=== PATIENT | female | born 1935 | race Caucasian/White ===

== ENCOUNTER → 2018-06-20 | Outpatient (CLI) | payer OTHER ==
[~2018-06-20] MED LIST: BIMA12.5OS OU; LISI30TA4 PO
== END | disposition home or self-care (01) ==
LOC: RAH 08:45
PROVIDERS: ATTEND Family Medicine
DX: I51.7 Cardiomegaly (principal); R06.09 Other forms of dyspnea
CPT/HCPCS: 93306

== ENCOUNTER 2018-06-26 17:40 | Emergency (ER) | payer OTHER ==
[2018-06-26] MEDS ORDERED: ACETAMINOPHEN EXTRA STRENGTH 500 MG TABLET ONE (18:24)
[2018-06-26] MEDS ORDERED: TETANUS/DIPHTHERIA TOXOID [ADULT] 0.5 ML VIAL IM ONE (19:01)
[2018-06-26] MEDS ORDERED: ONDANSETRON 4 MG TABLET ONE (19:09)
== END 2018-06-26 20:39 | disposition home or self-care (01) ==
LOC: EDH 17:40
DX: S16.1XXA Strain of muscle, fascia and tendon at neck level, initial encounter (principal); I10 Essential (primary) hypertension; Z88.7 Allergy status to serum and vaccine; Z91.012 Allergy to eggs; V49.49XA Driver injured in collision with other motor vehicles in traffic accident, initial encounter; Y93.89 Activity, other specified; Y92.89 Other specified places as the place of occurrence of the external cause; Y99.8 Other external cause status
CPT/HCPCS: 72125; 90471; 90714; 99284; Q0162

== ENCOUNTER 2020-01-14 19:40 | Emergency (ER) | payer OTHER ==
[2020-01-14] MEDS ORDERED: SODIUM CHLORIDE 0.9% 500ML 500 ML IV ONE (19:41)
[2020-01-14 20:41] LABS: BASOPHILS % (AUTO) 0.9 % (0.0-5.0); EOSINOPHILS % (AUTO) 1.5 % (0.0-8.0); HEMATOCRIT 31.5 % (36-48); LYMPHOCYTES % (AUTO) 25.4 % (21.0-51.0); MEAN CORPUSCULAR HEMOGLOBIN 26.9 pg (27.0-33.0); MEAN CORPUSCULAR HGB CONC 31.4 g/dL (32.0-36.0); MEAN CORPUSCULAR VOLUME 85.6 fL (79-99); MONOCYTES % (AUTO) 11.2 % (3.0-13.0); NEUTROPHILS % (AUTO) 60.6 % (40.0-77.0); PLATELET COUNT (AUTO) 398 K/uL (130-400); RED BLOOD CELL COUNT(AUTO) 3.68 MIL/uL (4.00-5.50); RED CELL DISTRIBUTION WIDTH 17.6 % (11.0-15.5); WHITE BLOOD COUNT (AUTO) 9.4 K/uL (4.8-10.8)
[2020-01-14 21:02] LABS: INR 0.97 (0.85-1.15); PARTIAL THROMBOPLASTIN TIME 25.1 SEC (26.3-35.5); PROTHROMBIN TIME 10.5 SEC (9.6-11.6)
[2020-01-14 21:05] LABS: CREATININE 1.4 mg/dL (0.5-1.5); POTASSIUM 3.9 mmol/L (3.5-5.1)
[2020-01-14 21:10] LABS: ALBUMIN 3.1 g/dL (3.5-5.0); BILIRUBIN,TOTAL 0.4 mg/dL (0.2-1.0); TOTAL PROTEIN, SERUM 7.8 g/dL (6.0-8.3)
[2020-01-15 00:11] LABS: APPEARANCE,URINE Clear (CLEAR); BILIRUBIN,URINE Negative (NEGATIVE); COLOR,URINE Yellow (YELLOW); GLUCOSE, URINE (UA) Negative (NEGATIVE); KETONES,URINE Negative (NEGATIVE); LEUKOCYTE ESTERASE ,URINE Trace (NEGATIVE); NITRATE,URINE Negative (NEGATIVE); OCCULT BLOOD,URINE Trace (NEGATIVE); PH,URINE 5.5 (5.0-8.0); PROTEIN,URINE Negative (NEGATIVE)
[2020-01-15 00:28] LABS: BACTERIA,URINE None Seen /HPF (None Seen); RBC,URINE None Seen /HPF (0-1); SQUAMOUS EPITHELIAL CELL,UR Rare /HPF (0-2); WBC,URINE 0-1 /HPF (0-1)
== END 2020-01-15 01:02 | disposition home or self-care (01) ==
LOC: EDH 19:40
DX: E86.0 Dehydration (principal); I49.3 Ventricular premature depolarization; I10 Essential (primary) hypertension; J44.9 Chronic obstructive pulmonary disease, unspecified; Z91.012 Allergy to eggs; Z88.7 Allergy status to serum and vaccine; Z86.718 Personal history of other venous thrombosis and embolism
CPT/HCPCS: 36415; 71045; 80053; 81001; 82550; 83880; 84484; 85025; 85610; 85730; 93005; 96360; 96361; 99285; J7040

== ENCOUNTER 2020-01-26 10:38 | Emergency (ER) | payer OTHER ==
[2020-01-26] MEDS ORDERED: ASPIRIN 325 MG TABLET ONE (10:48)
[2020-01-26 10:59] LABS: BASOPHILS % (AUTO) 0.4 % (0.0-5.0); EOSINOPHILS % (AUTO) 0.3 % (0.0-8.0); HEMATOCRIT 35.7 % (36-48); LYMPHOCYTES % (AUTO) 40.9 % (21.0-51.0); MEAN CORPUSCULAR HEMOGLOBIN 27.6 pg (27.0-33.0); MEAN CORPUSCULAR HGB CONC 32.2 g/dL (32.0-36.0); MEAN CORPUSCULAR VOLUME 85.8 fL (79-99); MONOCYTES % (AUTO) 12.4 % (3.0-13.0); NEUTROPHILS % (AUTO) 45.9 % (40.0-77.0); PLATELET COUNT (AUTO) 218 K/uL (130-400); RED BLOOD CELL COUNT(AUTO) 4.16 MIL/uL (4.00-5.50); RED CELL DISTRIBUTION WIDTH 17.5 % (11.0-15.5); WHITE BLOOD COUNT (AUTO) 7.2 K/uL (4.8-10.8)
[2020-01-26 11:06] LABS: CREATININE 1.1 mg/dL (0.5-1.5)
[2020-01-26 11:11] LABS: ALBUMIN 2.9 g/dL (3.5-5.0); BILIRUBIN,TOTAL 0.5 mg/dL (0.2-1.0); TOTAL PROTEIN, SERUM 7.5 g/dL (6.0-8.3)
[2020-01-26 11:17] LABS: B-TYPE NATRIURETIC PEPTIDE 90 pg/mL (0-100)
[2020-01-26 11:31] LABS: INR 0.9 (0.85-1.15); PARTIAL THROMBOPLASTIN TIME 30.9 SEC (26.3-35.5); PROTHROMBIN TIME 9.8 SEC (9.6-11.6)
[2020-01-26 13:07] LABS: APPEARANCE,URINE Clear (CLEAR); BILIRUBIN,URINE Negative (NEGATIVE); COLOR,URINE Yellow (YELLOW); GLUCOSE, URINE (UA) Negative (NEGATIVE); KETONES,URINE Negative (NEGATIVE); LEUKOCYTE ESTERASE ,URINE Trace (NEGATIVE); NITRATE,URINE Negative (NEGATIVE); OCCULT BLOOD,URINE Negative (NEGATIVE); PROTEIN,URINE Negative (NEGATIVE); UROBILINOGEN,URINE 0.2 mg/dL (0.2-1.0)
[2020-01-26 13:32] LABS: BACTERIA,URINE Rare /HPF (None Seen); RBC,URINE None Seen /HPF (0-1); WBC,URINE 0-1 /HPF (0-1)
[2020-01-26 13:33] LABS: SQUAMOUS EPITHELIAL CELL,UR 0-2 /HPF (0-2)
== END 2020-01-26 15:30 | disposition home or self-care (01) ==
LOC: EDH 10:38
DX: R53.1 Weakness (principal); R30.0 Dysuria; I49.01 Ventricular fibrillation; I10 Essential (primary) hypertension; Z88.7 Allergy status to serum and vaccine; Z91.012 Allergy to eggs
CPT/HCPCS: 36415; 71045; 80053; 81001; 82550; 83880; 84484; 85025; 85610; 85730; 93005

== ENCOUNTER → 2020-03-23 | Outpatient (CLI) | payer OTHER | END | disposition home or self-care (01) | LOC: SHCH 14:19 | PROVIDERS: ATTEND Internal Medicine Cardiovascular Disease | DX: I34.0 Nonrheumatic mitral (valve) insufficiency (principal) | CPT/HCPCS: 93306; 93356 ==

== ENCOUNTER 2020-08-20 17:33 | Inpatient (IN) | payer OTHER ==
[~2020-08-20] VITALS: Ht 172.7 cm; Wt 69.9 kg
[2020-08-20 19:13] LABS: BASOPHILS % (AUTO) 0.6 % (0.0-5.0); EOSINOPHILS % (AUTO) 2.2 % (0.0-8.0); HEMATOCRIT 36.8 % (36-48); LYMPHOCYTES % (AUTO) 20.1 % (21.0-51.0); MEAN CORPUSCULAR HEMOGLOBIN 27.6 pg (27.0-33.0); MEAN CORPUSCULAR HGB CONC 31.5 g/dL (32.0-36.0); MEAN CORPUSCULAR VOLUME 87.6 fL (79-99); MONOCYTES % (AUTO) 16.4 % (3.0-13.0); NEUTROPHILS % (AUTO) 60.3 % (40.0-77.0); PLATELET COUNT (AUTO) 285 K/uL (130-400); RED CELL DISTRIBUTION WIDTH 15.9 % (11.0-15.5)
[2020-08-20 19:26] LABS: INR 1.38 (0.85-1.15); PROTHROMBIN TIME 14.6 SEC (9.6-11.6)
[2020-08-20 19:27] LABS: PARTIAL THROMBOPLASTIN TIME 34.8 SEC (26.3-35.5)
[2020-08-20 19:29] LABS: ALBUMIN 2.6 g/dL (3.5-5.0); BILIRUBIN,TOTAL 0.4 mg/dL (0.2-1.0); CREATININE 1.3 mg/dL (0.5-1.5); TOTAL PROTEIN, SERUM 6.3 g/dL (6.0-8.3)
[2020-08-20] MEDS ORDERED: MORPHINE 2 MG SYG ONE (19:30)
[2020-08-20] MEDS ORDERED: ONDANSETRON 4MG INJ ONE (19:30)
[2020-08-20] MEDS ORDERED: 0.9%NACL 1000ML 1,000 ML IV ONE (19:31)
[2020-08-20 19:32] LABS: POTASSIUM 2.9 mmol/L (3.5-5.1)
[2020-08-20 19:35] LABS: B-TYPE NATRIURETIC PEPTIDE 63 pg/mL (0-100)
[2020-08-20] MEDS ORDERED: POTASSIUM BICARB/CIT AC 25 MEQ TABLET.EFF ONE ×2 (20:45→23:16)
[2020-08-20] MEDS ORDERED: IOHEXOL-350 75 ML VIAL IV ONE (21:15)
[2020-08-20] MEDS ORDERED: LACTATED RINGERS 1000ML 1,000 ML IV ONE (23:16)
[2020-08-20] MEDS: LACTATED RINGERS 1000ML 1,000 ML IV SCH (23:45)
[2020-08-20] MEDS ORDERED: ACETAMINOPHEN 325 MG TAB PO PRN (23:45)
[2020-08-21] VITALS (7 sets, daily range): BP systolic 103–116; BP diastolic 47–70
[2020-08-21] MEDS ORDERED: DICY20TA3 PO (00:33)
[2020-08-21] MEDS ORDERED: RIVA20TA PO (00:33)
[2020-08-21] MEDS ORDERED: FERR325T22 PO (00:34)
[2020-08-21] MEDS ORDERED: PANT40TA54 PO (00:34)
[2020-08-21] MEDS ORDERED: LISI1TAB51 PO (00:36)
[2020-08-21] MEDS ORDERED: DICYCLOMINE HCL 20 MG TAB PO PRN (01:00)
[2020-08-21] MEDS ORDERED: PHARMACY COMMUNICATION MISC SCH (01:30)
[2020-08-21 01:56] LABS: APPEARANCE,URINE Clear (CLEAR); BILIRUBIN,URINE Negative (NEGATIVE); COLOR,URINE Yellow (YELLOW); GLUCOSE, URINE (UA) Negative (NEGATIVE); KETONES,URINE Negative (NEGATIVE); LEUKOCYTE ESTERASE ,URINE Negative (NEGATIVE); NITRATE,URINE Negative (NEGATIVE); OCCULT BLOOD,URINE Moderate (NEGATIVE); PH,URINE 5.5 (5.0-8.0); PROTEIN,URINE Trace mg/dL (NEGATIVE); UROBILINOGEN,URINE 0.2 mg/dL (0.2-1.0)
[2020-08-21 02:07] LABS: BACTERIA,URINE None Seen /HPF (None Seen); SQUAMOUS EPITHELIAL CELL,UR Few /HPF (0-2); WBC,URINE None Seen /HPF (0-1)
[2020-08-21] MEDS: METRONIDAZOLE 500 MG TABLET PO SCH ×2 (04:08→10:51)
[2020-08-21 05:08] LABS: HEMATOCRIT 32.5 % (36-48); MEAN CORPUSCULAR HEMOGLOBIN 27.2 pg (27.0-33.0); MEAN CORPUSCULAR HGB CONC 31.4 g/dL (32.0-36.0); MEAN CORPUSCULAR VOLUME 86.7 fL (79-99); RED BLOOD CELL COUNT(AUTO) 3.75 MIL/uL (4.00-5.50); RED CELL DISTRIBUTION WIDTH 15.9 % (11.0-15.5); WHITE BLOOD COUNT (AUTO) 9.4 K/uL (4.8-10.8)
[2020-08-21 05:18] LABS: CREATININE 1.1 mg/dL (0.5-1.5); POTASSIUM 3.5 mmol/L (3.5-5.1)
[2020-08-21] MEDS: VANCOMYCIN 1G 4 GM, 0.9%NACL 20 ML VIAL 80 ML PO SCH ×6 (08:15→20:48)
[2020-08-21] MEDS ORDERED: COMPOUND PO MISCELLANEOUS 1 EACH MISC MISC PRN (08:15)
[2020-08-21] MEDS: CHOLESTYRAMINE PACKET 4 GM PACKET PO SCH ×2 (10:51→20:49)
[2020-08-21] MEDS: RIVAROXABAN 20 MG TABLET PO SCH (10:53)
[2020-08-21] MEDS: FERROUS SULFATE 325 MG TABLET.DR PO SCH ×2 (10:54→16:14)
[2020-08-21] MEDS: PANTOPRAZOLE 40 MG TAB DR PO SCH (10:54)
[2020-08-21] MEDS: LACTATED RINGERS 1000ML 1,000 ML IV SCH ×2 (10:55→16:01)
[2020-08-21] MEDS ORDERED: NITAZOXANIDE 500 MG TAB PO SCH (13:45)
[2020-08-21] MEDS: NITAZOXANIDE 500 MG TAB PO SCH (20:48)
[2020-08-21] MEDS: ***HM*** (Bimatoprost (Lumigan 0.01% Ophth Soln) 1 DROP) OU SCH (20:49)
[2020-08-22] MEDS: LACTATED RINGERS 1000ML 1,000 ML IV SCH ×4 (00:06→20:51)
[2020-08-22 04:23] VITALS: BP 125/60
[2020-08-22 05:32] LABS: HEMATOCRIT 30.6 % (36-48); MEAN CORPUSCULAR HEMOGLOBIN 27.5 pg (27.0-33.0); RED BLOOD CELL COUNT(AUTO) 3.56 MIL/uL (4.00-5.50); RED CELL DISTRIBUTION WIDTH 15.7 % (11.0-15.5); WHITE BLOOD COUNT (AUTO) 8.5 K/uL (4.8-10.8)
[2020-08-22] MEDS: VANCOMYCIN 1G 4 GM, 0.9%NACL 20 ML VIAL 80 ML PO SCH ×8 (05:41→20:48)
[2020-08-22 06:04] LABS: MAGNESIUM 1.2 mg/dL (1.80-2.40); POTASSIUM 3.2 mmol/L (3.5-5.1)
[2020-08-22 07:58] VITALS: BP 109/60
[2020-08-22] MEDS: NITAZOXANIDE 500 MG TAB PO SCH ×2 (09:14→21:00)
[2020-08-22] MEDS: FERROUS SULFATE 325 MG TABLET.DR PO SCH ×2 (09:14→16:08)
[2020-08-22] MEDS: RIVAROXABAN 20 MG TABLET PO SCH (09:15)
[2020-08-22] MEDS: ZINC OXIDE OINT 56.7 GM TP SCH ×3 (09:15→22:08)
[2020-08-22] MEDS: CHOLESTYRAMINE PACKET 4 GM PACKET PO SCH (09:15)
[2020-08-22] MEDS: PANTOPRAZOLE 40 MG TAB DR PO SCH (09:15)
[2020-08-22] MEDS ORDERED: LIDOCAINE HCL-MPF 1% 2ML VIAL IV PRN (09:30)
[2020-08-22] MEDS ORDERED: POTASSIUM CHLORIDE 20MEQ/100ML 100 ML IV PRN (09:30)
[2020-08-22] MEDS ORDERED: KCL 20 MEQ ERTAB PO PRN (09:30)
[2020-08-22] MEDS: MAGNESIUM 2GM PREMIX 50ML 50 ML IV PRN (11:00)
[2020-08-22 12:07] VITALS: BP 103/59
[2020-08-22] MEDS: POTASSIUM CHLORIDE 10% ELIXIR 20 MEQ/15 ML UDCUP PO PRN ×2 (12:38→22:07)
[2020-08-22 16:00] VITALS: BP 122/66
[2020-08-22 19:37] LABS: APPEARANCE,URINE CLEAR (CLEAR); BILIRUBIN,URINE NEGATIVE (NEGATIVE); COLOR,URINE YELLOW (YELLOW); GLUCOSE, URINE (UA) NEGATIVE (NEGATIVE); KETONES,URINE NEGATIVE (NEGATIVE); LEUKOCYTE ESTERASE ,URINE NEGATIVE (NEGATIVE); NITRATE,URINE NEGATIVE (NEGATIVE); OCCULT BLOOD,URINE SMALL (NEGATIVE); PROTEIN,URINE TRACE mg/dL (NEGATIVE); UROBILINOGEN,URINE 0.2 mg/dL (0.2-1.0)
[2020-08-22 19:43] LABS: BACTERIA,URINE Few /HPF (None Seen)
[2020-08-22 19:44] LABS: MUCUS,URINE Few LPF (None Seen); SQUAMOUS EPITHELIAL CELL,UR Few /HPF (0-2); URIC ACID CRYSTALS,URINE Few /LPF (None Seen)
[2020-08-22 19:46] VITALS: BP 110/74
[2020-08-22] MEDS: LACTOBACILLUS RHAMNOSUS GG 1 EACH CAP.SPRINK PO SCH (20:49)
[2020-08-22] MEDS: ***HM*** (Bimatoprost (Lumigan 0.01% Ophth Soln) 1 DROP) OU SCH (21:00)
[2020-08-22 23:05] VITALS: BP 127/75
[2020-08-23] MEDS: VANCOMYCIN 1G 4 GM, 0.9%NACL 20 ML VIAL 80 ML PO SCH ×8 (03:38→20:26)
[2020-08-23 04:16] VITALS: BP 114/74
[2020-08-23 05:00] LABS: HEMATOCRIT 34.2 % (36-48); MEAN CORPUSCULAR HEMOGLOBIN 27.2 pg (27.0-33.0); MEAN CORPUSCULAR HGB CONC 30.4 g/dL (32.0-36.0); MEAN CORPUSCULAR VOLUME 89.3 fL (79-99); RED BLOOD CELL COUNT(AUTO) 3.83 MIL/uL (4.00-5.50); RED CELL DISTRIBUTION WIDTH 15.8 % (11.0-15.5); WHITE BLOOD COUNT (AUTO) 7.2 K/uL (4.8-10.8)
[2020-08-23 05:16] LABS: MAGNESIUM 1.7 mg/dL (1.80-2.40); POTASSIUM 4.2 mmol/L (3.5-5.1)
[2020-08-23 07:00] VITALS: BP 121/61
[2020-08-23] MEDS: LACTATED RINGERS 1000ML 1,000 ML IV SCH ×2 (07:45→20:13)
[2020-08-23] MEDS: FERROUS SULFATE 325 MG TABLET.DR PO SCH ×2 (08:40→16:26)
[2020-08-23] MEDS: PANTOPRAZOLE 40 MG TAB DR PO SCH (08:40)
[2020-08-23] MEDS: LACTOBACILLUS RHAMNOSUS GG 1 EACH CAP.SPRINK PO SCH ×2 (08:40→20:24)
[2020-08-23] MEDS: RIVAROXABAN 20 MG TABLET PO SCH (08:40)
[2020-08-23] MEDS: MAGNESIUM 2GM PREMIX 50ML 50 ML IV PRN (08:41)
[2020-08-23] MEDS: ZINC OXIDE OINT 56.7 GM TP SCH ×3 (08:42→20:25)
[2020-08-23] MEDS: NITAZOXANIDE 500 MG TAB PO SCH ×2 (10:02→20:24)
[2020-08-23 11:30] VITALS: BP 140/77
[2020-08-23 16:00] VITALS: BP 111/70
[2020-08-23 20:00] VITALS: BP 141/72
[2020-08-23] MEDS: ***HM*** (Bimatoprost (Lumigan 0.01% Ophth Soln) 1 DROP) OU SCH (21:00)
[2020-08-24] VITALS: BP 146/81
[2020-08-24] MEDS: VANCOMYCIN 1G 4 GM, 0.9%NACL 20 ML VIAL 80 ML PO SCH ×6 (02:31→15:12)
[2020-08-24 04:00] VITALS: BP 141/77
[2020-08-24 05:04] LABS: HEMATOCRIT 35.2 % (36-48); MEAN CORPUSCULAR HEMOGLOBIN 26.7 pg (27.0-33.0); MEAN CORPUSCULAR HGB CONC 29.3 g/dL (32.0-36.0); MEAN CORPUSCULAR VOLUME 91.2 fL (79-99); RED BLOOD CELL COUNT(AUTO) 3.86 MIL/uL (4.00-5.50); RED CELL DISTRIBUTION WIDTH 15.9 % (11.0-15.5); WHITE BLOOD COUNT (AUTO) 8.3 K/uL (4.8-10.8)
[2020-08-24 05:22] LABS: POTASSIUM 4.1 mmol/L (3.5-5.1)
[2020-08-24] MEDS: MAGNESIUM 2GM PREMIX 50ML 50 ML IV PRN (06:47)
[2020-08-24] MEDS: LACTATED RINGERS 1000ML 1,000 ML IV SCH (07:38)
[2020-08-24 08:00] VITALS: BP 128/70
[2020-08-24] MEDS: LACTOBACILLUS RHAMNOSUS GG 1 EACH CAP.SPRINK PO SCH (09:31)
[2020-08-24] MEDS: FERROUS SULFATE 325 MG TABLET.DR PO SCH (09:31)
[2020-08-24] MEDS: PANTOPRAZOLE 40 MG TAB DR PO SCH (09:31)
[2020-08-24] MEDS: NITAZOXANIDE 500 MG TAB PO SCH (09:31)
[2020-08-24] MEDS: RIVAROXABAN 20 MG TABLET PO SCH (09:32)
[2020-08-24] MEDS: ZINC OXIDE OINT 56.7 GM TP SCH ×2 (09:37→15:13)
[2020-08-24 11:52] VITALS: BP 121/63
[2020-08-24] MEDS ORDERED: LACT1CAP79 PO (14:20)
[2020-08-24] MEDS ORDERED: VANC250C6 PO (14:20)
[2020-08-24] MEDS ORDERED: NITA500T4 PO (14:20)
[2020-09-15] MEDS ORDERED: LISI20TA24 PO (10:01)
[2020-09-15] MEDS ORDERED: CYAN-52 PO (10:26)
[2020-11-12] MEDS ORDERED: L.AC1CAP6 PO (16:31)
[2020-11-12] MEDS ORDERED: PROP150T28 PO (16:31)
[2020-11-12] MEDS ORDERED: HYDR12.54 PO (16:31)
[2020-11-12] MEDS ORDERED: LISI1TAB51 PO (16:31)
[2020-11-12] MEDS ORDERED: PANT40TA54 PO (16:32)
[2021-01-01] MEDS ORDERED: CYAN500T9 PO (10:20)
[2021-01-01] MEDS ORDERED: DICY20TA3 PO (10:20)
[2021-01-01] MEDS ORDERED: CA C1TAB74 PO (10:20)
[2021-01-03] MEDS ORDERED: FERR325T22 PO (15:29)
[2021-01-03] MEDS ORDERED: PANT40TA54 PO (15:29)
== END 2020-08-24 18:30 | disposition home or self-care (01) | DRG 373 ==
LOC: EDH 17:33 → OBSVTOIN 22:39 → EDHIP 22:39 → 3CH 08-21 00:02
PROVIDERS: ADMIT Internal Medicine Critical Care Medicine; ATTEND Internal Medicine Critical Care Medicine
DX: A04.72 Enterocolitis due to Clostridium difficile, not specified as recurrent (principal); D64.9 Anemia, unspecified; I48.91 Unspecified atrial fibrillation; K21.9 Gastro-esophageal reflux disease without esophagitis; E83.42 Hypomagnesemia; K57.90 Diverticulosis of intestine, part unspecified, without perforation or abscess without bleeding; I11.9 Hypertensive heart disease without heart failure; E86.0 Dehydration; K44.9 Diaphragmatic hernia without obstruction or gangrene; E87.6 Hypokalemia; M19.90 Unspecified osteoarthritis, unspecified site; R30.0 Dysuria; R91.1 Solitary pulmonary nodule; R53.81 Other malaise; Z79.01 Long term (current) use of anticoagulants; Z86.19 Personal history of other infectious and parasitic diseases; Z79.899 Other long term (current) drug therapy
CPT/HCPCS: 36415; 74018; 74177; 80048; 80053; 81001; 82270; 82948; 83605; 83690; 83735; 83880; 84484; 85025; 85027; 85610; 85730; 87040; 87046; 87088; 87324; 93005; G0378; J2405; J3370; J3475; J7030; J7120; Q9967

== ENCOUNTER 2020-09-16 06:30 | Day surgery (SDC) | payer OTHER ==
[2020-09-11 15:11] LABS: EOSINOPHILS % (AUTO) 4.2 % (0.0-8.0); HEMATOCRIT 32.7 % (36-48); LYMPHOCYTES % (AUTO) 35.5 % (21.0-51.0); MEAN CORPUSCULAR HGB CONC 30.9 g/dL (32.0-36.0); MEAN CORPUSCULAR VOLUME 90.6 fL (79-99); MONOCYTES % (AUTO) 10.8 % (3.0-13.0); NEUTROPHILS % (AUTO) 48.2 % (40.0-77.0); PLATELET COUNT (AUTO) 259 K/uL (130-400); RED BLOOD CELL COUNT(AUTO) 3.61 MIL/uL (4.00-5.50); RED CELL DISTRIBUTION WIDTH 16.9 % (11.0-15.5); WHITE BLOOD COUNT (AUTO) 6.2 K/uL (4.8-10.8)
[2020-09-11 15:19] LABS: POTASSIUM 4.1 mmol/L (3.5-5.1)
[~2020-09-16] VITALS: Ht 172.7 cm; Wt 71.8 kg
[~2020-09-16 06:30] MED LIST changes: -BIMA12.5OS OU; +CYAN-52 PO; +FERR325T22 PO; +LACT1CAP79 PO; +LISI20TA24 PO; -LISI30TA4 PO; +RIVA20TA PO; +VANC250C6 PO
[2020-09-16 07:25] VITALS: BP 138/86
[2020-09-16] MEDS ORDERED: 0.9%NACL 1000ML 1,000 ML IV SCH (08:00)
[2020-09-16] MEDS ORDERED: PROPOFOL 10 MG/ML 20ML VIAL IV ONE (08:16)
[2020-09-16 08:45] VITALS: BP 124/64
[2020-09-16] MEDS ORDERED: PROPAFENONE HCL 150 MG TABLET PO SCH (08:49)
[2020-09-16 09:00] VITALS: BP 143/87
[2020-09-16 09:15] VITALS: BP 149/92
[2020-09-16 09:30] VITALS: BP 146/85
[2020-11-12] MEDS ORDERED: L.AC1CAP6 PO (16:31)
[2020-11-12] MEDS ORDERED: HYDR12.54 PO (16:31)
[2020-11-12] MEDS ORDERED: LISI1TAB51 PO (16:31)
[2020-11-12] MEDS ORDERED: PROP150T28 PO (16:31)
[2020-11-12] MEDS ORDERED: PANT40TA54 PO (16:32)
[2021-01-01] MEDS ORDERED: CA C1TAB74 PO (10:20)
[2021-01-01] MEDS ORDERED: CYAN500T9 PO (10:20)
[2021-01-01] MEDS ORDERED: DICY20TA3 PO (10:20)
[2021-01-03] MEDS ORDERED: FERR325T22 PO (15:29)
[2021-01-03] MEDS ORDERED: PANT40TA54 PO (15:29)
== END 2020-09-16 09:45 | disposition home or self-care (01) ==
LOC: DAH 06:30
PROVIDERS: ATTEND Internal Medicine Cardiovascular Disease
DX: I48.3 Typical atrial flutter (principal); Z20.822 Contact with and (suspected) exposure to COVID-19; I48.91 Unspecified atrial fibrillation; I49.3 Ventricular premature depolarization; J44.9 Chronic obstructive pulmonary disease, unspecified; I11.9 Hypertensive heart disease without heart failure; I45.10 Unspecified right bundle-branch block; I44.0 Atrioventricular block, first degree; I48.92 Unspecified atrial flutter; I49.1 Atrial premature depolarization; I25.2 Old myocardial infarction; Z79.01 Long term (current) use of anticoagulants; Z79.899 Other long term (current) drug therapy; Z98.890 Other specified postprocedural states; Z86.718 Personal history of other venous thrombosis and embolism; Z91.012 Allergy to eggs
CPT/HCPCS: 36415; 80048; 85025; 87426; 92960; 93005 ×2; A4215; A4216; A4221; A4222; A4223 ×3; A4606; A4663; J2704; J7030; 99152; 99153

== ENCOUNTER 2020-11-13 06:06 | Day surgery (SDC) | payer OTHER ==
[2020-11-10 12:05] VITALS: BP 131/72
[2020-11-11 12:21] LABS: BASOPHILS % (AUTO) 0.9 % (0.0-5.0); EOSINOPHILS % (AUTO) 4.2 % (0.0-8.0); HEMATOCRIT 34.4 % (36-48); LYMPHOCYTES % (AUTO) 41.1 % (21.0-51.0); MEAN CORPUSCULAR HEMOGLOBIN 29.2 pg (27.0-33.0); MEAN CORPUSCULAR HGB CONC 31.1 g/dL (32.0-36.0); MEAN CORPUSCULAR VOLUME 93.7 fL (79-99); NEUTROPHILS % (AUTO) 44.6 % (40.0-77.0); PLATELET COUNT (AUTO) 190 K/uL (130-400); RED BLOOD CELL COUNT(AUTO) 3.67 MIL/uL (4.00-5.50); WHITE BLOOD COUNT (AUTO) 6.4 K/uL (4.8-10.8)
[2020-11-11 12:29] LABS: CREATININE 1.1 mg/dL (0.5-1.5); POTASSIUM 4.7 mmol/L (3.5-5.1)
[2020-11-11 12:32] LABS: INR 1.22 (0.85-1.15); PROTHROMBIN TIME 13.1 SEC (9.6-11.6)
[2020-11-11 12:33] LABS: PARTIAL THROMBOPLASTIN TIME 37.9 SEC (26.3-35.5)
[~2020-11-13] VITALS: Ht 172.7 cm; Wt 68.9 kg
[2020-11-13] VITALS (8 sets, daily range): BP systolic 130–161; BP diastolic 63–83
[~2020-11-13 06:06] MED LIST changes: -CYAN-52 PO; +HYDR12.54 PO; +L.AC1CAP6 PO; -LACT1CAP79 PO; +LISI1TAB51 PO; -LISI20TA24 PO; +PANT40TA54 PO; +PROP150T28 PO; -VANC250C6 PO
[2020-11-13] MEDS ORDERED: SODIUM CHLORIDE 0.9% 1000ML 1,000 ML IV ONE (07:12)
[2020-11-13] MEDS ORDERED: MIDAZOLAM HCL 1 MG/ML 2ML VIAL ONE ×2 (07:14→10:14)
[2020-11-13] MEDS ORDERED: MEPERIDINE-PF 25 MG/ML SYG ONE ×2 (07:14→10:14)
[2020-11-13] MEDS ORDERED: HEPARIN SODIUM 1000UNIT/ML 10ML VIAL ONE (07:14)
[2020-11-13] MEDS ORDERED: LIDOCAINE HCL 400MG/20ML VIAL ONE (07:15)
== END 2020-11-13 14:30 | disposition home or self-care (01) ==
LOC: DAH 06:06
PROVIDERS: ATTEND Internal Medicine Cardiovascular Disease
DX: I48.3 Typical atrial flutter (principal); I48.0 Paroxysmal atrial fibrillation; I49.3 Ventricular premature depolarization; J44.9 Chronic obstructive pulmonary disease, unspecified; I10 Essential (primary) hypertension; Z79.01 Long term (current) use of anticoagulants; Z91.012 Allergy to eggs; Z88.8 Allergy status to other drugs, medicaments and biological substances; Z98.42 Cataract extraction status, left eye; Z98.890 Other specified postprocedural states; Z98.41 Cataract extraction status, right eye
CPT/HCPCS: 36415; 80048; 85025; 85610; 85730; 93613; 93621; 93653; A4215; A4216; A4221; A4222; A4223 ×3; A4606; A4615; A4649 ×2; A4663; C1730; C1732; C1893; C1894 ×2; J1644 ×2; J2175 ×2; J2250 ×2; J3490; J7030; 99156; 99157

== ENCOUNTER 2021-09-22 06:56 | Day surgery (SDC) | payer OTHER ==
[2021-09-21 16:41] LABS: BASOPHILS % (AUTO) 0.6 % (0.0-5.0); EOSINOPHILS % (AUTO) 1.3 % (0.0-8.0); LYMPHOCYTES % (AUTO) 30.4 % (21.0-51.0); MEAN CORPUSCULAR HEMOGLOBIN 27.6 pg (27.0-33.0); MEAN CORPUSCULAR HGB CONC 31.1 g/dL (32.0-36.0); MEAN CORPUSCULAR VOLUME 88.8 fL (79-99); MONOCYTES % (AUTO) 9.5 % (3.0-13.0); NEUTROPHILS % (AUTO) 57.9 % (40.0-77.0); PLATELET COUNT (AUTO) 262 K/uL (130-400); RED BLOOD CELL COUNT(AUTO) 3.04 MIL/uL (4.00-5.50); RED CELL DISTRIBUTION WIDTH 16.7 % (11.0-15.5); WHITE BLOOD COUNT (AUTO) 6.2 K/uL (4.8-10.8)
[2021-09-21 16:50] LABS: CREATININE 1.3 mg/dL (0.5-1.5); POTASSIUM 3.7 mmol/L (3.5-5.1)
[2021-09-21 16:56] LABS: PROTHROMBIN TIME 10.4 SEC (9.6-11.6)
[2021-09-22] VITALS (13 sets, daily range): BP systolic 133–163; BP diastolic 52–64
[~2021-09-22] VITALS: Ht 172.7 cm; Wt 62.7 kg
[~2021-09-22 06:56] MED LIST changes: +0.9% NACL 500ML IV.SOLN 500 ML IV SCH; +CA C1TAB74 PO; +CYAN500T9 PO; +DICY20TA3 PO; -HYDR12.54 PO; -RIVA20TA PO
[2021-09-22] MEDS ORDERED: LIDOCAINE HCL 2% VISCOUS 15 ML UDCUP ONE (07:52)
[2021-09-22] MEDS ORDERED: MIDAZOLAM HCL 1 MG/ML 2ML VIAL ONE (07:53)
[2021-09-22] MEDS ORDERED: FENTANYL CITRATE PF 50 MCG/1 ML 2ML VIAL ONE (07:53)
[2021-09-22] MEDS ORDERED: AMIO200T68 PO (08:14)
[2021-09-22] MEDS ORDERED: LEVO25CA4 PO (08:14)
[2021-09-22] MEDS ORDERED: CLOP75TA32 PO (08:14)
== END 2021-09-22 10:00 | disposition home or self-care (01) ==
LOC: DAH 06:56
PROVIDERS: ATTEND Internal Medicine Cardiovascular Disease
DX: I48.0 Paroxysmal atrial fibrillation (principal); I34.0 Nonrheumatic mitral (valve) insufficiency; I49.3 Ventricular premature depolarization; I10 Essential (primary) hypertension; J44.9 Chronic obstructive pulmonary disease, unspecified; Z79.01 Long term (current) use of anticoagulants; Z79.899 Other long term (current) drug therapy; Z98.42 Cataract extraction status, left eye; Z98.890 Other specified postprocedural states; Z98.41 Cataract extraction status, right eye; Z88.8 Allergy status to other drugs, medicaments and biological substances; Z91.012 Allergy to eggs
CPT/HCPCS: 36415; 71045; 80048; 85025; 85610; 85730; 93005; 93312; A4215; A4216; A4221; A4222; A4223 ×3; A4606; A4615; A4663; A7002; J2250; J3010; 99152

== ENCOUNTER → 2022-08-16 | Outpatient (CLI) | payer OTHER ==
[~2022-08-16] MED LIST changes: -0.9% NACL 500ML IV.SOLN 500 ML IV SCH; +AMIO200T68 PO; -CA C1TAB74 PO; +CLOP75TA32 PO; -CYAN500T9 PO; -DICY20TA3 PO; -FERR325T22 PO; -L.AC1CAP6 PO; +LEVO25CA4 PO; -LISI1TAB51 PO; -PROP150T28 PO
== END | disposition home or self-care (01) ==
LOC: SHCH 12:53
PROVIDERS: ATTEND Internal Medicine Cardiovascular Disease
DX: I48.0 Paroxysmal atrial fibrillation (principal); I11.9 Hypertensive heart disease without heart failure
CPT/HCPCS: 93306

== ENCOUNTER 2023-05-02 06:17 | Day surgery (SDC) | payer OTHER ==
[2023-04-27 14:42] LABS: BASOPHILS # (AUTO) 0.05 K/uL (0.00-0.20); BASOPHILS % (AUTO) 0.6 % (0.0-5.0); EOSINOPHILS # (AUTO) 0.16 K/uL (0.00-0.70); HEMATOCRIT 30.9 % (36-48); IMMATURE GRANULOCYTE ABSOLUTE 0.02 K/uL (0-1); LYMPHOCYTES # (AUTO) 2.7 K/uL (1.0-4.8); LYMPHOCYTES % (AUTO) 34.2 % (21.0-51.0); MEAN CORPUSCULAR HEMOGLOBIN 26.3 pg (27.0-33.0); MEAN CORPUSCULAR HGB CONC 30.1 g/dL (32.0-36.0); MEAN CORPUSCULAR VOLUME 87.3 fL (79-99); MONOCYTES # (AUTO) 0.9 K/uL (0.1-1.0); NEUTROPHILS # (AUTO) 4.1 K/uL (1.8-7.7); NEUTROPHILS % (AUTO) 51.9 % (40.0-77.0); PLATELET COUNT (AUTO) 320 K/uL (130-400); RED BLOOD CELL COUNT(AUTO) 3.54 MIL/uL (4.00-5.50); RED CELL DISTRIBUTION WIDTH 17.2 % (11.0-15.5); WHITE BLOOD COUNT (AUTO) 7.8 K/uL (4.8-10.8)
[2023-04-27 14:49] LABS: INR 1.33 (0.85-1.15); PROTHROMBIN TIME 15.1 SEC (9.6-11.6)
[2023-04-27 14:50] LABS: CREATININE 1.1 mg/dL (0.5-1.5); PARTIAL THROMBOPLASTIN TIME 55.7 SEC (26.3-35.5); POTASSIUM 4.8 mmol/L (3.5-5.1)
[2023-04-28 15:22] VITALS: BP 128/57; PULSE 64; RESP 18
[2023-05-02] VITALS (8 sets, daily range): BP systolic 118–132; BP diastolic 66–78; PULSE 78–86; RESP 15
[~2023-05-02] VITALS: Ht 170.2 cm; Wt 70.6 kg
[~2023-05-02 06:17] MED LIST changes: +AEC81 PO; -AMIO200T68 PO; +AMLO-257 PO; -CLOP75TA32 PO; +DOCU50CA15 PO; +RIVA15TA PO
[2023-05-02] MEDS ORDERED: 0.9%NACL 1000ML 1,000 ML IV ONE (06:50)
[2023-05-02] MEDS ORDERED: FENTANYL CITRATE PF 50 MCG/1 ML 2ML VIAL ONE (07:40)
[2023-05-02] MEDS ORDERED: MIDAZOLAM HCL 1 MG/ML 2ML VIAL ONE (07:40)
[2023-05-02] MEDS ORDERED: LIDOCAINE HCL 400MG/20ML VIAL ONE (07:40)
[2023-05-02] MEDS ORDERED: HEPARIN 10,000 UNIT/10ML (1,000 UNIT/ML) VIAL ONE (07:41)
[2023-05-02] MEDS ORDERED: LIDOCAINE HCL 1% MDV 50ML VIAL ONE (07:41)
[2023-05-02] MEDS ORDERED: MEPERIDINE-PF 25 MG/ML SYG ONE (08:02)
[2023-05-02] MEDS ORDERED: APIXABAN 2.5 MG TABLET PO ONE (11:31)
[2023-05-02] MEDS ORDERED: APIXABAN 5 MG TABLET PO ONE (15:00)
== END 2023-05-02 13:15 | disposition home or self-care (01) ==
LOC: DAH 06:17
PROVIDERS: ATTEND Internal Medicine Cardiovascular Disease
DX: I48.3 Typical atrial flutter (principal); R55 Syncope and collapse; I10 Essential (primary) hypertension; J44.9 Chronic obstructive pulmonary disease, unspecified; Z91.012 Allergy to eggs; Z88.3 Allergy status to other anti-infective agents; Z83.3 Family history of diabetes mellitus; Z80.0 Family history of malignant neoplasm of digestive organs; Z82.49 Family history of ischemic heart disease and other diseases of the circulatory system; Z79.82 Long term (current) use of aspirin; Z79.899 Other long term (current) drug therapy; Z98.42 Cataract extraction status, left eye; Z98.41 Cataract extraction status, right eye; Z98.890 Other specified postprocedural states
CPT/HCPCS: 80048; 85025; 85610; 85730; 36415; 93005 ×2; 93653; C1894 ×2; C1732 ×2; A4649 ×2; J3010; J7030; J1644 ×2; J2250; J2175; J3490; A4215; A4222; A4221; A4663; A4216; A4606; A4223 ×3; 99156; 99157

== ENCOUNTER → 2024-06-27 | Outpatient (CLI) | payer OTHER ==
[2024-06-27] MEDS: REGADENOSON 0.4 MG/5 ML PF SYG IVP ONE (13:57)
--- NOTE | 2024-06-28 06:56 | HMCSR ---
APPROVED REPORT Height: 5 ft 8in Weight: 164 lbs TEST INDICATIONS DYSPNEA UNSPECIFIED The imaging protocol used to acquire images was Rest Tc-99m/stress Tc-99m 1 day Consent: The procedure was explained and understood by the patient. Informerd consent was witnessed Pernell Metzger RN First, low dose rest was performed then high dose stress. RESTING DATA: The resting ekg shows: NSR, RBBB Rest SPECT myocardial perfusion imaging was performed in supine position 66 minutes following the int ravenous injection of 10 mCi of Tc-99 Sestamibi. Time of rest injection: 08:36: Date: 06/27/2024 Time of rest imagin:42: Date: 06/27/2024 PHARMACOLOGIC STRESS: Pharmacologic stress test was performed by injecting regadenoson 0.4 mg IV push followed by the intra venous injection of 32.6 mCi of Tc-99 Sestamibi. Time of stress injection: 10:05: Date: 06/27/2024 Time of stress imagin:12: Date: 06/27/2024 Heart Rate at time of stress injection: 72 bpm. Gated Stress SPECT was performed 67 minutes after stress injection. The images were gated to evaluate regional wall motion and calculate left ventricular ejection fracti on. STRESS DETAILS Reason for Termination: Infusion complete Stress Symptoms: Dyspnea Max HR Achieved: 90 bpm % of APMHR Achieved: 68 Max Blood Pressure: 157/64 mmHg Stress ECG: NSR, RBBB Study quality was good. Lung uptake was Normal. Artifact: increased GI uptake LEFT VENTRICLE Size: The left ventricular size is normal. Systolic Function:The left ventricular systolic function is normal. Wall Motion: No regional wall motion abnormalities noted. The left ventricular ejection fraction was calculated to be 60%.TID = . LV PERFUSION The rest and stress images show normal perfusion. IMPRESSION Normal pharmacologic nuclear stress test. Global LV Function: Normal Stress ECG Summary: Normal LV Perfusion Summary: Normal Conclusion Normal pharmacologic nuclear stress test. Global LV Function: Normal Stress ECG Summary: Normal LV Perfusion Summary: Normal
== END | disposition home or self-care (01) ==
LOC: SHCH 08:07
PROVIDERS: ATTEND Student in an Organized Health Care Education/Training Program
DX: I45.10 Unspecified right bundle-branch block (principal); R06.00 Dyspnea, unspecified; Z79.899 Other long term (current) drug therapy
CPT/HCPCS: 78452; 93017; J2785; A9500 ×2

== ENCOUNTER → 2024-07-16 | Outpatient (CLI) | payer OTHER | END | disposition home or self-care (01) | LOC: SHCH 09:59 | PROVIDERS: ATTEND Student in an Organized Health Care Education/Training Program | DX: R06.00 Dyspnea, unspecified (principal) | CPT/HCPCS: 93306 ==